=== PATIENT | female | born 1955 | race Caucasian/White ===

== ENCOUNTER → 2024-09-16 14:20 | Outpatient (CLI) | payer MEDICARE, SELFPAY ==
--- NOTE | 2024-09-16 14:22 | DI.RAD.S_ITS ---
PROCEDURE: XR CHEST 2V INDICATIONS: chronic cough, sob, rule out infiltrate TECHNIQUE: 2 views of the chest were acquired. COMPARISON: None. FINDINGS: Surgical changes and devices: None. Lungs and pleura: Lungs are clear. No pleural effusions or pneumothorax. Mediastinum: Mediastinal contours are normal. Heart size is normal. Bones and chest wall: No suspicious bony abnormalities. Soft tissues appear unremarkable. IMPRESSION: No acute cardiopulmonary abnormality is seen. Dictated by: Tj Lowery M.D. on 09/16/2024 at 16:05 Approved by: Tj Lowery M.D. on 09/16/2024 at 16:07
== END ==
PROVIDERS: PCP Internal Medicine; Referring Provider Internal Medicine; Visit Provider Internal Medicine
DX: J45.40 Moderate persistent asthma, uncomplicated (principal); Z68.37 Body mass index [BMI] 37.0-37.9, adult
CPT/HCPCS: 71046; 94664; 99215

== ENCOUNTER → 2024-09-23 14:09 | Outpatient (CLI) | payer MEDICARE, SELFPAY | LOC: RESP 14:10 | PROVIDERS: PCP Internal Medicine; Referring Provider Internal Medicine; Visit Provider Internal Medicine | DX: R06.02 Shortness of breath (principal); J45.40 Moderate persistent asthma, uncomplicated; R94.2 Abnormal results of pulmonary function studies | CPT/HCPCS: 94060; 94726; 94729 ==